=== PATIENT | female | born 1945 | race African-American/Black ===

== ENCOUNTER 2025-03-12 18:10 | Inpatient (IN) | payer OTHER, MEDICARE ==
[~2025-03-12] VITALS: Ht 152.4 cm; Wt 61.9 kg
[2025-03-12 18:17] VITALS: O2SAT 98
[2025-03-12] MEDS ORDERED: KETOROLAC 15MG/ML VIAL IV ONE (18:30)
[2025-03-12] MEDS ORDERED: ONDANSETRON HCL 4MG/2ML INJ IV ONE (18:30)
[2025-03-12 20:16] LABS: BASOPHILS % 0.5 % (0.0-2.0); EOSINOPHILS % 1.0 % (0.0-5.0); HEMATOCRIT. 34.1 % (36.0-48.0); HEMOGLOBIN. 11.2 g/dL (12.0-16.0); LYMPHOCYTES % 27.4 % (20.0-50.0); MEAN PLATELET VOLUME 8.9 fl (7.4-10.4); MONOCYTES % 11.2 % (2.0-8.0); NEUTROPHILS % 59.9 % (40.0-76.0); PLATELET 222 x1000/uL (130-400); RED BLOOD CELL COUNT 3.72 mill/uL (4.2-5.4); RED CELL DISTRIBUTION WIDTH 16.1 % (11.6-14.6)
[2025-03-12 20:27] LABS: INR 1.0
[2025-03-12 20:47] LABS: CREATININE 0.8 mg/dL (0.6-1.0); TROPONIN I HIGH SENSITIVITY 11 ng/L (3.0-34); UREA NITROGEN BLOOD 20 mg/dL (9-23)
[2025-03-12 20:48] LABS: ASPARTATE AMINOTRANSFERASE 21 IU/L (<34)
[2025-03-12 20:49] LABS: BILIRUBIN DIRECT < 0.1 mg/dL (<=3.0); BILIRUBIN TOTAL 0.2 mg/dL (0.1-1.0); PROTEIN TOTAL 7.5 g/dL (6.0-8.3)
[2025-03-12] MEDS: KETOROLAC 15MG/ML VIAL IV SCH (21:15)
[2025-03-12] MEDS: ONDANSETRON HCL 4MG/2ML INJ IV SCH (21:15)
[2025-03-12] MEDS: CEFTRIAXONE 2GM/50ML 50 ML IV ONE (21:16)
[2025-03-12 21:48] LABS: CLARITY URINE CLEAR (CLEAR); COLOR URINE YELLOW (YELLOW); GLUCOSE URINE NEGATIVE (NEGATIVE); KETONES URINE NEGATIVE (NEGATIVE); LEUKOCYTE ESTERASE URINE TRACE (NEGATIVE); NITRITE URINE NEGATIVE (NEGATIVE); OCCULT BLOOD URINE NEGATIVE (NEGATIVE); PH URINE 6.5 (4.5-8.0); PROTEIN URINE NEGATIVE (NEGATIVE); SPECIFIC GRAVITY URINE 1.009 (1.005-1.030); UROBILINOGEN URINE 0.2 E.U./dL (0.2-1.0)
[2025-03-12 22:04] LABS: RBC URINE 0-2 /hpf (0-2); SQUAMOUS EPITHELIAL CELL URINE RARE /lpf (RARE/1+)
[2025-03-12 22:05] LABS: BACTERIA URINE NONE SEEN
[2025-03-12] MEDS: AZITHROMYCIN 500MG/250ML 250 ML IV SCH (22:33)
[2025-03-13] MEDS: ASPIRIN 81MG TABLET PO ONE (00:22)
[2025-03-13 02:10] LABS: TROPONIN I HIGH SENSITIVITY 14 ng/L (3.0-34)
[2025-03-13] MEDS ORDERED: IPRATROPIUM/ALBUTEROL 0.5-3(2.5)MG/3ML NEB HHN PRN (03:30)
[2025-03-13] MEDS ORDERED: ONDANSETRON HCL 4MG/2ML INJ IV PRN (03:30)
[2025-03-13] MEDS ORDERED: ACETAMINOPHEN 325MG TABLET PO PRN (03:45)
[2025-03-13 04:00] VITALS: BP 141/58; PULSE 62; RESP 20; TEMP 37; TEMP 37.0296; O2SAT 97
[2025-03-13] MEDS ORDERED: NALOXONE HCL 0.4MG/ML VIAL IV PRN (04:00)
[2025-03-13 08:00] VITALS: BP 130/49; PULSE 73; RESP 20; TEMP 36.6; O2SAT 98
[2025-03-13] MEDS: ENOXAPARIN 40MG/0.4ML SYR SUBCUT SCH (11:05)
[2025-03-13] MEDS: THIAMINE HCL 100MG TABLET PO SCH (11:05)
[2025-03-13 12:00] VITALS: BP 159/52; PULSE 18; RESP 20; TEMP 36.6; O2SAT 100
[2025-03-13 16:00] VITALS: BP 151/50; PULSE 70; RESP 20; TEMP 36.5; O2SAT 99
[2025-03-13] MEDS: HYDROCODONE/ACETAMINOPHEN 10/325MG TABLET PO PRN (16:48)
[2025-03-13] MEDS ORDERED: EZET10TA81 (17:01)
[2025-03-13] MEDS ORDERED: HYDR25TA PO (17:01)
[2025-03-13] MEDS ORDERED: LOSA100T33 PO (17:01)
[2025-03-13] MEDS: LOSARTAN 100 MG TABLET PO SCH (17:30)
[2025-03-13] MEDS: HYDROCHLOROTHIAZIDE 25MG TABLET PO SCH (17:31)
[2025-03-13 19:49] VITALS: BP 128/37; PULSE 86; RESP 20; TEMP 37; O2SAT 99
[2025-03-14] MEDS ORDERED: EZETIMIBE 10MG TABLET PO SCH (09:00)
== END 2025-03-13 23:40 | disposition short-term general hospital (02) | DRG 58 ==
LOC: ER 18:10 → 8WST 22:20 → EDBEDREQTM 03-13 01:04 → EDBEDREQSVC 03-13 01:04 → EDBEDREQ 03-13 01:04 → ENRESERV 03-13 02:26
PROVIDERS: ADMIT Student in an Organized Health Care Education/Training Program; ATTEND Student in an Organized Health Care Education/Training Program
DX: G35 Multiple sclerosis (principal); J18.9 Pneumonia, unspecified organism; R53.2 Functional quadriplegia; E83.42 Hypomagnesemia; M43.6 Torticollis; E78.00 Pure hypercholesterolemia, unspecified; I10 Essential (primary) hypertension; Z79.899 Other long term (current) drug therapy; Z88.0 Allergy status to penicillin; Z88.2 Allergy status to sulfonamides; Z99.3 Dependence on wheelchair
CPT/HCPCS: 36415; 71045; 74176; 80048; 80076; 81003; 83605; 83735; 83880; 84145; 84484; 85025; 92610; 93005; 93970; 96365; 96375; 99285; J0456; J0696; J1650; J1885; J2405